=== PATIENT | female | born 1995 | race African-American/Black ===

== ENCOUNTER 2021-09-05 18:58 | Emergency (ER) | payer SELFPAY ==
[2021-09-05 22:59] LABS: Urine Blood Negative (Negative); Urine Glucose Negative (Negative); Urine Protein Negative (Negative); Urine Specific Gravity <=1.005 (1.005-1.030)
[2021-09-05 23:27] LABS: Barbiturates NEGATIVE (NEGATIVE); Benzodiazepines NEGATIVE (NEGATIVE); Cocaine NEGATIVE (NEGATIVE); METHAMPHETAM NEGATIVE (NEGATIVE); Methadone NEGATIVE (NEGATIVE); Opiates NEGATIVE (NEGATIVE); Phencyclidine NEGATIVE (NEGATIVE); THC Cannibis NEGATIVE (NEGATIVE)
[2021-09-05 23:29] LABS: Absolute Lymphocytes (CBC) 2.4 K/uL (0.7-4.9); Hematocrit 36.2 % (36.0-45.0); Lymphocytes % 36.4 % (15.3-44.8); RBC Red Blood Cell Count 4.67 M/uL (3.86-4.86)
[2021-09-05 23:30] LABS: Urine Bacteria 20-50 /HPF (<20); Urine RBC <5 /HPF (NONE SEEN)
[2021-09-05 23:38] LABS: Protime INR 1.15
[2021-09-05 23:51] LABS: ALT/SGPT 34 U/L (12-78); AST/SGOT 17 U/L (15-37); Albumin 3.8 g/dL (3.4-5.0); Alkaline Phosphatase 61 U/L (45-117); BUN Blood Urea Nitrogen 7 mg/dL (7-18); Bicarbonate 27 mmol/L (21-32); Bilirubin Direct 0.2 mg/dL (0-0.2); Bilirubin Total 0.7 mg/dL (0.2-1.0); Glucose Level 84 mg/dL (74-106); Potassium 3.3 mmol/L (3.5-5.1); Sodium Level 141 mmol/L (136-145)
--- NOTE | 2021-09-06 00:47 | EDPHYS ---
Physician Documentation [facility] Name: Amparo Yang Age: 26 yrs Sex: Female : 1995 Arrival Date: 09/05/2021 Time: 19:17 Bed 16 Private MD: ED Physician Eduardo Rod HPI: 09/06 00:41 This 26 yrs old Black Female presents to ER via Law Enforcement with complaints of rn Suicidal Ideation. 00:41 The patient presents to the emergency department with psychosis, has experienced rn auditory hallucinations, voices are telling patient to commit sucide, suicide ideation. Onset: The symptoms/episode began/occurred at an unknown time. Associated signs and symptoms: Pertinent positives; anxiety, hallucinations, suicide ideation. Severity of symptoms: At their worst the symptoms were severe in the emergency department the symptoms are unchanged. The patient has experienced similar episodes in the past. The patient has not recently seen a physician. 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 Denies overdose or attempt to harm herself recently. Denies feeling ill recently. Reports is going to in 3 days, that is what voices are telling her, and she is here to . . 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 - Social history:: Smoking status: Patient reports the use of cigarette tobacco products, smokes one-half pack cigarettes per day, Patient uses alcohol, on a daily basis. street drugs, marijuana. - Family history:: not pertinent. - Hospitalizations: : No recent hospitalization is reported. ROS: 09/06 00:41 Constitutional: Negative for fever, chills, and weight loss, Eyes: Negative for injury, rn pain, redness, and discharge, ENT: Negative for injury, pain, and discharge, Neck: Negative for injury, pain, and swelling, Cardiovascular: Negative for chest pain, palpitations, and edema, Respiratory: Negative for shortness of breath, cough, wheezing, and pleuritic chest pain, Abdomen/GI: Negative for abdominal pain, nausea, vomiting, diarrhea, and constipation, Back: Negative for injury and pain, : Negative for injury, bleeding, discharge, and swelling, MS/Extremity: Negative for injury and deformity, Skin: Negative for injury, rash, and discoloration, Neuro: Negative for headache, weakness, numbness, tingling, and seizure, Psych: + for depression/anxiety/SI/hallucinations Exam: 00:41 Constitutional: This is a well developed, well nourished patient who is awake, alert, rn and in no acute distress. Head/Face: Normocephalic, atraumatic. Eyes: Periorbital areas with no swelling, redness, or edema. Cardiovascular: Regular rate and rhythm. No pulse deficits. Respiratory: No increased work of breathing, no retractions or nasal flaring. Abdomen/GI: Soft, non-tender Skin: Warm, dry MS/ Extremity: Pulses equal, no cyanosis. Neuro: Awake and alert, GCS 15 00:51 ECG was reviewed by the Attending Physician. rn Vital Signs: 09/05 19:24 BP 118 / 81; Pulse 76; Resp 17; Temp 99; Pulse Ox 99% ; Weight 80.74 kg; Height 5 ft. 7 ap3 in. (170.18 cm); 19:25 BP 118 / 81; Pulse 76; Resp 17; Temp 99; Pulse Ox 99% ; ap3 09/06 06:34 BP 93 / 61; Pulse 53; Resp 16; Temp 97.5(O); Pulse Ox 98% on R/A; lg3 07:30 BP 100 / 78; Pulse 70; Resp 16; Temp 98.6; Pulse Ox 99% ; Weight 81.65 kg; Height 5 ft. cb5 8 in. (172.72 cm); Pain 0/10; 09:15 BP 103 / 70; Pulse 72; Resp 16; Temp 98.6; Pulse Ox 99% ; Pain 0/10; cb5 07:30 Body Mass Index 27.37 (81.65 kg, 172.72 cm) cb5 MDM: 09/05 22:23 Patient medically screened. rn 09/06 00:44 Differential diagnosis: depression, psychosis secondary to non-compliance, rn schizophrenia, suicidal ideations. Data reviewed: vital signs, nurses notes, lab test result(s), and as a result, I will admit patient. Counseling: I had a detailed discussion with the patient and/or guardian regarding: the historical points, exam findings, and any diagnostic results supporting the discharge/admit diagnosis, lab results, the need for further work-up and treatment in the hospital, the need to transfer to another facility, [facility] does not immediately have the required specialist. ED course: Pt voluntary and requests help, will transfer to psychiatric facility. . 09/05 22:25 Order name: Acetaminophen 09/05 22:25 Order name: Basic Metabolic Panel 09/05 22:25 Order name: CBC with Diff; Complete Time: 09/05 22:25 Order name: ETOH Level; Complete Time: 09/05 22:25 Order name: Hepatic Function; Complete Time: 09/05 22:25 Order name: PT-INR; Complete Time: 09/05 22:25 Order name: Ptt, Activated; Complete Time: 09/05 22:25 Order name: Salicylate; Complete Time: 09/05 22:25 Order name: Urine Drug Screen; Complete Time: 09/05 22:25 Order name: Urine Microscopic Only; Complete Time: 09/05 22:25 Order name: SARS-COV-2 RT PCR (Document "Date of Onset" if Symptomatic); Complete Time: rn 09/05 22:25 Order name: Acetaminophen Level; Complete Time: [facility] 09/05 22:25 Order name: Basic Metabolic Panel; Complete Time: [facility] 09/05 23:00 Order name: Urine Dipstick-Ancillary; Complete Time: [facility] 09/05 22:25 Order name: EKG; Complete Time: : 09/05 22:25 Order name: EKG - Nurse/Tech; Complete Time: 23:38 09/05 22:25 Order name: IV Saline Lock; Complete Time: : 09/05 22:25 Order name: Labs collected and sent; Complete Time: : 09/05 22:25 Order name: Suicide Screening ([place]); Complete Time: 23:05 rn 09/05 22:25 Order name: Urine Dipstick-Ancillary (obtain specimen); Complete Time: 23:05 rn 09/05 22:25 Order name: Urine Test (obtain specimen); Complete Time: 23:05 rn 09/05 22:51 Order name: Diet Finger Food; Complete Time: 22:51 3 09/05 23:04 Order name: Test, Serum; Complete Time: 01:19 mw2 09/05 23:30 Order name: Urine Culture [facility] 09/06 06:34 Order name: Diet Finger Food: 911 tray; Complete Time: 06:35 mw2 EC:51 Rate is 50 beats/min. Rhythm is regular. QRS [place] is Normal. NE interval is normal. QRS rn interval is normal. QT interval is normal. No Q waves. T waves are Normal. No ST changes noted. Clinical impression: Sinus bradycardia. Interpreted by me. Reviewed by me. Administered Medications: 01:26 Drug: HYDROcodone-acetaminophen 5 mg-325 mg 1 tabs Route: PO; lg3 01:26 Follow up: Response: No adverse reaction; RASS: Alert and Calm (0) lg3 05:11 Drug: HYDROcodone-acetaminophen 5 mg-325 mg 1 tabs Route: PO; lg3 05:11 Follow up: Response: No adverse reaction lg3 07:30 Drug: NS 0.9% 1000 ml Route: IV; Rate: 1000 ml; Site: left antecubital; cb5 Disposition Summary: 09/06/21 00:47 Transfer Ordered Transfer Location: [facility] Facility rn Reason: Higher level of care rn Condition: Stable rn Problem: an ongoing problem rn Symptoms: are unchanged rn Accepting Physician: (09/06/21 09:51) cb5 Diagnosis - Schizophrenia, unspecified rn - Suicidal ideations rn Forms: - Medication Reconciliation Form rn - SBAR form rn Signatures: Dispatcher [employer] London Smiley MD MD rn Calderon, Audri, RN RN aa5 Monalisa De La Torre RN RN ap3 Earnestine Floyd, RN RN lg3 Kori Dobson, RN RN cb5 Corrections: (The following items were deleted from the chart) 09:51 00:47 Dr. rn cb5
--- NOTE | 2021-09-06 00:47 | ER ---
Nurse's Notes [facility] Name: Amparo Yang Age: 26 yrs Sex: Female : 1995 Arrival Date: 09/05/2021 Time: 19:17 Bed 16 Private MD: Diagnosis: Schizophrenia, unspecified;Suicidal ideations Presentation: 09/05 19:17 Chief complaint: Officer accompanied patient from [facility] for reasons of ap3 thoughts and plans to harm herself. Patient states she wants to cut herself with a razor and if that does not work, she wants to drown herself in the water. However officer states he was informed that she wants to be brought to the ED to have the staff in the ED end her life in three days. Patient presents to the ED with bible in hand. Coronavirus screen: At this time, the client does not indicate any symptoms associated with coronavirus-19. Ebola Screen: No symptoms or risks identified at this time. Risk Assessment: Do you want to hurt yourself or someone else? Patient reports desire/thoughts of hurting themselves or someone else. Provider notified. Onset of symptoms was September 02, 2021. 19:17 Method Of Arrival: Law Enforcement: [place] [employer] ap3 19:17 Acuity: NAHOMY 2 ap3 19:25 Initial Sepsis Screen: Does the patient meet any 2 criteria? Altered Mental Status. ap3 Does the patient have a suspected source of infection? No. Patient's initial sepsis screen is negative. Triage Assessment: 19:21 General: Appears distressed, Behavior is anxious. Pain: Complains of pain in low back ap3 area Pain radiates to right leg and left leg. Neuro: Level of Consciousness is awake, alert, obeys commands. Cardiovascular: Patient's skin is warm and dry. Respiratory: Airway is patent Respiratory effort is even, unlabored, Respiratory pattern is regular, symmetrical. 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 - Social history:: Smoking status: Patient reports the use of cigarette tobacco products, smokes one-half pack cigarettes per day, Patient uses alcohol, on a daily basis. street drugs, marijuana. - Family history:: not pertinent. - Hospitalizations: : No recent hospitalization is reported. Screenin:25 Abuse screen: wants to harm herself. Nutritional screening: No deficits noted. ap3 Tuberculosis screening: No symptoms or risk factors identified. 23:41 Fall Risk None identified. lg3 Assessment: 23:41 General: Appears in no apparent distress. comfortable, Behavior is calm, cooperative. lg3 Pain: Denies pain. Neuro: No deficits noted. Level of Consciousness is awake, alert, obeys commands, Oriented to person, place, time, situation. Cardiovascular: No deficits noted. Denies chest pain, shortness of breath. Respiratory: No deficits noted. Airway is patent Trachea midline Respiratory effort is even, unlabored, Respiratory pattern is regular, symmetrical. GI: No deficits noted. No signs and/or symptoms were reported involving the gastrointestinal system. Abdomen is round non-distended. : No deficits noted. No signs and/or symptoms were reported regarding the genitourinary system. EENT: No deficits noted. No signs and/or symptoms were reported regarding the EENT system. Derm: No deficits noted. Skin is intact, is healthy with good turgor, Skin is dry, bilateral arm scaring noted. Musculoskeletal: No deficits noted. No signs and/or symptoms reported regarding the musculoskeletal system. Circulation, motion, and sensation intact. Capillary refill < 3 seconds, Range of motion: intact in all extremities. 03 00:54 Reassessment: Patient appears in no apparent distress at this time. No changes from lg3 previously documented assessment. Patient and/or family updated on plan of care and expected duration. Pain level reassessed. Patient is alert, oriented x 3, equal unlabored respirations, skin warm/dry/pink. pt quietly reading in bed. 00:55 General: mom: Kayla [phone]. lg3 02:20 Reassessment: Patient appears in no apparent distress at this time. No changes from lg3 previously documented assessment. Patient and/or family updated on plan of care and expected duration. Pain level reassessed. Patient is alert, oriented x 3, equal unlabored respirations, skin warm/dry/pink. pt quietly sleeping. 04:09 General: evaluation with aliya boyd via phone completed at this time. placement pending lg3 on recommendation. 04:48 General: nurse to nurse report given to Selena with Aliya Boyd . lg3 08:00 Reassessment: Patient and/or family updated on plan of care and expected duration. Pain cb5 level reassessed. pt ate 100% of breakfast. 08:40 General: pt is talking with mom on the phone at nurse sstation. cb5 09:00 Reassessment: Patient and/or family updated on plan of care and expected duration. Pain cb5 level reassessed. 09:17 Reassessment: pt removed her P.I.V told nurse she didn't like it, doesn't want it. cb5 09:45 General: EMS is here to transfer patient to [facility] in [place]. Pt is awake, cb5 alert, no distress, calm, cooperative, Contacted security for them to return her belongings to patient. . Vital Signs: 09/05 19:24 BP 118 / 81; Pulse 76; Resp 17; Temp 99; Pulse Ox 99% ; Weight 80.74 kg; Height 5 ft. 7 ap3 in. (170.18 cm); 19:25 BP 118 / 81; Pulse 76; Resp 17; Temp 99; Pulse Ox 99% ; ap3 03/12 06:34 BP 93 / 61; Pulse 53; Resp 16; Temp 97.5(O); Pulse Ox 98% on R/A; lg3 07:30 BP 100 / 78; Pulse 70; Resp 16; Temp 98.6; Pulse Ox 99% ; Weight 81.65 kg; Height 5 ft. cb5 8 in. (172.72 cm); Pain 0/10; 09:15 BP 103 / 70; Pulse 72; Resp 16; Temp 98.6; Pulse Ox 99% ; Pain 0/10; cb5 07:30 Body Mass Index 27.37 (81.65 kg, 172.72 cm) cb5 ED Course: 09/05 19:17 Patient arrived in ED. es 19:20 Triage completed. ap3 19:25 Arm band placed on right wrist. ap3 22:20 Earnestine Floyd, RN is Primary Nurse. lg3 22:23 London Meadows MD is Attending Physician. rn 23:05 Urine Drug Screen Sent. lg3 23:05 Urine Microscopic Only Sent. lg3 23:22 Basic Metabolic Panel Sent. lg3 23:22 SARS-COV-2 RT PCR (Document "Date of Onset" if Symptomatic) Sent. lg3 23:22 Acetaminophen Level Sent. lg3 23:22 Acetaminophen Sent. lg3 23:22 Basic Metabolic Panel Sent. lg3 23:22 CBC with Diff Sent. lg3 23:23 ETOH Level Sent. lg3 23:23 Hepatic Function Sent. lg3 23:23 PT-INR Sent. lg3 23:23 Ptt, Activated Sent. lg3 23:23 Salicylate Sent. lg3 23:41 Patient has correct armband on for positive identification. Placed in gown. Bed in low lg3 position. Side rails up X 1. Valuables inventory done. sent with security. 23:41 Inserted saline lock: 20 gauge in left antecubital area, using aseptic technique. Blood lg3 collected. 0312 02:40 contacted [facility] spoke to Suzanne to have a screener evaluate the mw2 patient. 04:13 faxed patient information to all available psych facilities. 2 09:28 Attending Physician role handed off by London Meadows MD [facility] 09:28 Eduardo Rod MD is Attending Physician. [facility] Administered Medications: 01:26 Drug: HYDROcodone-acetaminophen 5 mg-325 mg 1 tabs Route: PO; lg3 01:26 Follow up: Response: No adverse reaction; RASS: Alert and Calm (0) lg3 05:11 Drug: HYDROcodone-acetaminophen 5 mg-325 mg 1 tabs Route: PO; lg3 05:11 Follow up: Response: No adverse reaction lg3 07:30 Drug: NS 0.9% 1000 ml Route: IV; Rate: 1000 ml; Site: left antecubital; cb5 Outcome: 00:47 ER care complete, transfer ordered by . rn 09:51 Patient left the ED. cb5 Signatures: Eduardo Rod MD MD cha Salyer, Edna es Nieto, Roman, MD MD rn Prokisch, Amanda RN RN ap3 Reema Copeland mw2 Earnestine Floyd, RN RN lg3 Olya, Kori, RN RN cb5
[2021-09-06] MEDS ORDERED: HYDROCODONE/APAP 5/325 MG TAB ONE ×2 (01:25→05:03)
[2021-09-06] MEDS ORDERED: NA CHLORIDE 0.9% 1,000 ML ONE (08:22)
[2021-09-06 10:16] VITALS: TEMP 98.6; O2SAT 99
[2021-09-06 10:18] VITALS: BP 103/70
--- NOTE | 2021-09-07 10:12 | EKG ---
Test Date: 2021-09-05 Test Time: 23:33:58 Administrative Intern: MEASUREMENT RESULTS: Intervals: Rate: 50 AL: 164 QRSD: 90 QT: 452 QTc: 412 [place]: P: 61 AL: 164 QRS: 29 T: 46 INTERPRETIVE STATEMENTS: Sinus bradycardia Otherwise normal ECG No previous ECG available for comparison Electronically Signed On 09-07-21 10:11:37 CDT by Milo Sanchez
== END 2021-09-06 09:51 ==
LOC: ER 18:58
DX: R45.851 Suicidal ideations (principal); F20.9 Schizophrenia, unspecified; F17.210 Nicotine dependence, cigarettes, uncomplicated; Z20.822 Contact with and (suspected) exposure to COVID-19
CPT/HCPCS: 36415; 80048; 80076; 80307; 80320; 80329; 81003; 81015; 84703; 85025; 85610; 85730; 87086; 87088; 93005; 99284; J7030; U0003